=== PATIENT | male | born 1995 | race Caucasian/White ===

== ENCOUNTER 2023-06-14 13:14 | Inpatient (IN) | payer OTHER ==
[~2023-06-14] VITALS: Ht 167.6 cm; Wt 61.3 kg
[~2023-06-14 13:14] MED LIST: DEPA500T2 PO; VYVA50CA4 PO
[2023-06-14 15:29] LABS: BASO % 0.1 % (0.0-1.0); HEMOGLOBIN 15.1 g/dl (13.5-17.5); LYMPH # 0.3 10^3/uL (1.5-5.0); LYMPH % 3.9 % (24.0-44.0); MEAN CORPUSCULAR HEMOGLOBIN 33.9 pg (27.0-33.0); MEAN CORPUSCULAR VOLUME 94.4 fl (80.0-96.0); MONO # 0.6 10^3/uL (0.0-0.8); MONO % 8.6 % (2.0-8.0); NEUTROPHILS # 6.2 10^3/uL (1.5-8.5); NEUTROPHILS % 86.8 % (36.0-66.0); PLATELET COUNT, AUTOMATED 243 10^3/uL (150-450); RED BLOOD COUNT 4.45 10^6/uL (4.30-6.10); WHITE BLOOD COUNT 7.2 10^3/uL (4.0-10.0)
[2023-06-14 16:04] LABS: ALBUMIN 4.6 G/DL (3.2-5.2); ALKALINE PHOSPHATASE 128 U/L (46-116); ALT/SGPT 375 U/L (7.0-40); AST/SGOT 471 U/L (<34); BILIRUBIN,TOTAL 5.2 MG/DL (0.3-1.2); BLOOD UREA NITROGEN 8 MG/DL (9-23); CALCIUM LEVEL 9.2 MG/DL (8.5-10.1); CARBON DIOXIDE LEVEL 11 MMOL/L (20-31); CHLORIDE LEVEL 92 MMOL/L (98-107); CREATININE FOR GFR 0.53 MG/DL (0.70-1.30); GLOMERULAR FILTRATION RATE > 60.0 (>60); GLUCOSE, FASTING 152 MG/DL (60-100); POTASSIUM SERUM 3.7 MMOL/L (3.5-5.1); SODIUM LEVEL 131 MMOL/L (136-145); TOTAL PROTEIN 7.6 G/DL (5.7-8.2)
[2023-06-14 16:18] LABS: LIPASE 1164 U/L (12-53)
[2023-06-14 17:24] LABS: ABG BASE EXCESS -13.8 (-2.0-2.0); ABG HCO3 9.3 MMOL/L (22.0-26.0); ABG O2 SATURATION 98.4 % (95.0-99.0); ABG PARTIAL PRESSURE O2 116.2 mmHg (75.0-100.0); ABG STANDARD HCO3 14.2 MMOL/L. (22.0-26.0); ABG TOTAL CO2 9.9 MMOL/L (22.0-29.0); ABG pH (ARTERIAL) 7.319 UNITS (7.350-7.450)
[2023-06-14 17:25] LABS: ABG PARTIAL PRESSURE CO2 18.6 mmHg (35.0-45.0)
[2023-06-14] MEDS: LR 1,000 ML IV ONE (17:39)
[2023-06-14] MEDS: ONDANSETRON 4MG 2ML VIAL IV ONE ×2 (17:40→21:24)
[2023-06-14] MEDS: MORPHINE 4 MG/ML 1ML VIAL IV ONE (17:40)
[2023-06-14 17:44] LABS: MAGNESIUM LEVEL 1.8 MG/DL (1.8-2.4)
[2023-06-14] MEDS ORDERED: ISOVUE-370 76% 100ML VIAL As Ordered ONE (18:07)
[2023-06-14 18:14] LABS: HEMOGLOBIN A1c 4.2 % (4.0-6.0)
[2023-06-14 18:54] LABS: ETHYL ALCOHOL (ETHANOL) 0.195 % (0.000-0.010)
[2023-06-14 18:56] LABS: SALICYLATE LEVEL < 3.0 MG/DL (<30)
[2023-06-14 19:28] LABS: INR 1.21; PARTIAL THROMBOPLASTIN TIME 24.1 SECONDS (24.8-34.2); PROTHROMBIN TIME 14.9 SECONDS (12.5-14.5)
[2023-06-14] MEDS: PIPERACILLIN/TAZOBACTAM SOD 3.375 GM in D5W MINI-BAG PLUS 50 ML IV ONE (19:44)
[2023-06-14] MEDS: NS 1,000 ML IV ONE (19:45)
[2023-06-14] MEDS: LORazepam 2 MG/ML 1ML VIAL IV STA (20:06)
[2023-06-14 20:08] LABS: APPEARANCE, URINE HAZY (CLEAR); BACTERIA, URINE AUTO NEGATIVE (NEGATIVE); BILIRUBIN, URINE AUTO NEGATIVE (NEGATIVE); BLOOD, URINE BLOOD 1+ (NEGATIVE); COLOR, URINE AMBER (YELLOW); GLUCOSE, URINE (UA) AUTO 1+ mg/dL (NEGATIVE); KETONE, URINE AUTO 2+ mg/dL (NEGATIVE); LEUKOCYTE ESTERASE, URINE AUTO NEGATIVE (NEGATIVE); MUCUS, URINE SMALL (NEGATIVE); NITRITE, URINE AUTO NEGATIVE (NEGATIVE); PROTEIN, URINE AUTO 2+ mg/dL (NEGATIVE); RBC, URINE AUTO 0 /HPF (0-3); SQUAMOUS EPITHELIAL CELL UR AU 1 /HPF (0-6); WBC, URINE AUTO 6 /HPF (0-3)
[2023-06-14 20:20] LABS: HEPATITIS B CORE ANTIBODY IGM NEGATIVE (NEGATIVE)
[2023-06-14 20:21] LABS: HEPATITIS C VIRUS ABY INDEX 0.04 INDEX (<0.8)
[2023-06-14 20:23] LABS: SPECIFIC GRAVITY URINE AUTO >1.060 (1.002-1.035)
[2023-06-14] MEDS: THIAMINE 100 MG TAB PO SCH (21:00)
[2023-06-14] MEDS: MORPHINE 2 MG/ML 1ML VIAL IV ONE (21:25)
[2023-06-14] MEDS: MULTIVITAMIN -ADULT INJECTION 10 ML, THIAMINE INJection 100 MG, FOLIC ACID 1 MG in NS 1... IV ONE (23:38)
[2023-06-15] MEDS: LR 1,000 ML IV SCH (00:24)
[2023-06-15] MEDS: KETOROLAC 30 MG/ML 1ML VIAL IV PRN (00:54)
[2023-06-15] MEDS ORDERED: PREV15CA PO (01:46)
[2023-06-15] MEDS ORDERED: HOME MED LIST COMPLETE! XX SCH (01:50)
[2023-06-15 06:23] LABS: HEMATOCRIT 36.4 % (42.0-52.0); HEMOGLOBIN 13.2 g/dl (13.5-17.5); MEAN CORPUSCULAR HEMOGLOBIN 34.1 pg (27.0-33.0); MEAN CORPUSCULAR HGB CONC 36.3 g/dl (32.0-36.5); MEAN CORPUSCULAR VOLUME 94.1 fl (80.0-96.0); PLATELET COUNT, AUTOMATED 152 10^3/uL (150-450); RED BLOOD COUNT 3.87 10^6/uL (4.30-6.10); WHITE BLOOD COUNT 8.7 10^3/uL (4.0-10.0)
[2023-06-15 06:41] LABS: ALBUMIN 3.3 G/DL (3.2-5.2); ALKALINE PHOSPHATASE 89 U/L (46-116); ALT/SGPT 237 U/L (7.0-40); AST/SGOT 292 U/L (<34); BILIRUBIN,TOTAL 4.8 MG/DL (0.3-1.2); BLOOD UREA NITROGEN 6 MG/DL (9-23); CALCIUM LEVEL 8.4 MG/DL (8.5-10.1); CARBON DIOXIDE LEVEL 19 MMOL/L (20-31); CHLORIDE LEVEL 100 MMOL/L (98-107); CREATININE FOR GFR 0.42 MG/DL (0.70-1.30); GLOMERULAR FILTRATION RATE > 60.0 (>60); GLUCOSE, FASTING 133 MG/DL (60-100); MAGNESIUM LEVEL 1.3 MG/DL (1.8-2.4); POTASSIUM SERUM 3.5 MMOL/L (3.5-5.1); SODIUM LEVEL 135 MMOL/L (136-145); TOTAL PROTEIN 5.5 G/DL (5.7-8.2)
[2023-06-15] MEDS: MULTIVITAMINS/MINERALS THERAP 1 TAB PO SCH (08:42)
[2023-06-15] MEDS: FOLIC ACID 1MG TAB PO SCH (08:42)
[2023-06-15] MEDS: ENOXAPARIN 40MG/0.4ML SYRINGE (J1650 PER 10MG) SC SCH (08:43)
[2023-06-15] MEDS ORDERED: KETOROLAC 30 MG/ML 1ML VIAL IV PRN (11:10)
[2023-06-15] MEDS: ACETAMINOPHEN 500 MG TAB PO SCH (11:56)
[2023-06-15] MEDS: PANTOPRAZOLE 40MG VIAL IV SCH (12:18)
[2023-06-15] MEDS: MIRALAX *UNIT DOSE* 17GM PACKET PO SCH (12:18)
[2023-06-15] MEDS: BISACODYL 10MG SUPP PR SCH (13:39)
[2023-06-15 15:00] VITALS: BP 136/64
[2023-06-15] MEDS: KETOROLAC 30 MG/ML 1ML VIAL IV SCH (15:06)
[2023-06-15 15:10] VITALS: BP 130/67; TEMP 98.2; O2SAT 98
[2023-06-15] MEDS: MORPHINE 4 MG/ML 1ML VIAL IV PRN (18:21)
[2023-06-15 20:00] VITALS: BP 143/87; TEMP 98.6; O2SAT 97
[2023-06-15] MEDS: LORazepam 2 MG TAB PO PRN (20:26)
[2023-06-15 22:30] VITALS: BP 141/87; TEMP 97.9; O2SAT 95
[2023-06-16 00:29] VITALS: BP 137/95; TEMP 98.8; O2SAT 97
[2023-06-16 04:18] VITALS: BP 124/80; TEMP 98.6; O2SAT 95
[2023-06-16 06:31] LABS: EOS % 0.4 % (0.0-3.0); HEMATOCRIT 30.9 % (42.0-52.0); HEMOGLOBIN 11.4 g/dl (13.5-17.5); LYMPH # 0.7 10^3/uL (1.5-5.0); LYMPH % 13.4 % (24.0-44.0); MEAN CORPUSCULAR HEMOGLOBIN 33.8 pg (27.0-33.0); MEAN CORPUSCULAR HGB CONC 36.9 g/dl (32.0-36.5); MEAN CORPUSCULAR VOLUME 91.7 fl (80.0-96.0); MONO # 0.5 10^3/uL (0.0-0.8); MONO % 9.4 % (2.0-8.0); NEUTROPHILS # 4.1 10^3/uL (1.5-8.5); NEUTROPHILS % 76.2 % (36.0-66.0); PLATELET COUNT, AUTOMATED 118 10^3/uL (150-450); RED BLOOD COUNT 3.37 10^6/uL (4.30-6.10); WHITE BLOOD COUNT 5.3 10^3/uL (4.0-10.0)
[2023-06-16 06:57] LABS: ALBUMIN 2.6 G/DL (3.2-5.2); ALKALINE PHOSPHATASE 70 U/L (46-116); ALT/SGPT 169 U/L (7.0-40); AST/SGOT 206 U/L (<34); BILIRUBIN,TOTAL 5.1 MG/DL (0.3-1.2); BLOOD UREA NITROGEN < 5 MG/DL (9-23); CALCIUM LEVEL 8.3 MG/DL (8.5-10.1); CARBON DIOXIDE LEVEL 28 MMOL/L (20-31); CHLORIDE LEVEL 99 MMOL/L (98-107); GLOMERULAR FILTRATION RATE > 60.0 (>60); GLUCOSE, FASTING 91 MG/DL (60-100); POTASSIUM SERUM 2.8 MMOL/L (3.5-5.1); SODIUM LEVEL 132 MMOL/L (136-145); TOTAL PROTEIN 4.4 G/DL (5.7-8.2)
[2023-06-16 08:18] LABS: PHOSPHORUS LEVEL 0.5 MG/DL (2.5-4.9)
[2023-06-16] MEDS: KCL 10MEQ/100ML SWI (KRUN) 10 MEQ in IV 1 EA IV SCH (08:19)
[2023-06-16] MEDS: MAG SULF 1GM/100ML (MAG RUN) 1 GM in IV 1 EA IV SCH (08:19)
[2023-06-16] MEDS: POTASSIUM CHLORIDE 10MEQ SR TABLET PO SCH (08:25)
[2023-06-16 09:43] VITALS: BP 118/81
[2023-06-16] MEDS: oxyCODONE 5MG TAB PO PRN (12:00)
[2023-06-16] MEDS: MAGNESIUM CITRATE 300ML BTL PO ONE (14:00)
[2023-06-16] MEDS: SODIUM PHOSPHATE INJ 30 MMOL in D5W 500 ML IV ONE (15:33)
[2023-06-16 20:59] VITALS: BP 121/85
[2023-06-16 21:10] VITALS: BP 121/85; TEMP 98.8; O2SAT 96
[2023-06-17 01:07] VITALS: BP 133/102
[2023-06-17 02:14] VITALS: BP 134/88
[2023-06-17 05:21] VITALS: BP 136/84; TEMP 98.2; O2SAT 96
[2023-06-17 06:38] LABS: BASO % 0.2 % (0.0-1.0); EOS % 0.4 % (0.0-3.0); HEMATOCRIT 30.6 % (42.0-52.0); HEMOGLOBIN 11.2 g/dl (13.5-17.5); LYMPH # 0.6 10^3/uL (1.5-5.0); LYMPH % 12.4 % (24.0-44.0); MEAN CORPUSCULAR HEMOGLOBIN 33.1 pg (27.0-33.0); MEAN CORPUSCULAR VOLUME 90.5 fl (80.0-96.0); MONO # 0.3 10^3/uL (0.0-0.8); MONO % 5.6 % (2.0-8.0); NEUTROPHILS % 80.8 % (36.0-66.0); RED BLOOD COUNT 3.38 10^6/uL (4.30-6.10)
[2023-06-17 06:48] LABS: MEAN CORPUSCULAR HGB CONC 36.6 g/dl (32.0-36.5); PLATELET COUNT, AUTOMATED 127 10^3/uL (150-450)
[2023-06-17 07:05] LABS: ALBUMIN 2.5 G/DL (3.2-5.2); ALKALINE PHOSPHATASE 76 U/L (46-116); ALT/SGPT 216 U/L (7.0-40); AST/SGOT 326 U/L (<34); BILIRUBIN,DIRECT 6.3 MG/DL (<0.4); BILIRUBIN,TOTAL 7.9 MG/DL (0.3-1.2); BLOOD UREA NITROGEN < 5 MG/DL (9-23); CALCIUM LEVEL 7.6 MG/DL (8.5-10.1); CARBON DIOXIDE LEVEL 29 MMOL/L (20-31); CHLORIDE LEVEL 99 MMOL/L (98-107); CREATININE FOR GFR 0.29 MG/DL (0.70-1.30); GLOMERULAR FILTRATION RATE > 60.0 (>60); GLUCOSE, FASTING 79 MG/DL (60-100); MAGNESIUM LEVEL 1.7 MG/DL (1.8-2.4); POTASSIUM SERUM 3.1 MMOL/L (3.5-5.1); SODIUM LEVEL 135 MMOL/L (136-145); TOTAL PROTEIN 4.4 G/DL (5.7-8.2)
[2023-06-17] MEDS: MAG SULF 1GM/100ML (MAG RUN) 1 GM in IV 1 EA IV SCH (08:31)
[2023-06-17] MEDS: MAGNESIUM OXIDE 400MG TAB (MAG-OX) PO SCH (08:32)
[2023-06-17] MEDS: POTASSIUM PHOSPHATE INJ 30 MMOL in D5W 500 ML IV ONE (13:36)
[2023-06-17 14:00] VITALS: BP 115/85; TEMP 98.2; O2SAT 97
[2023-06-17 14:54] LABS: INR 1.66
[2023-06-17 20:01] VITALS: BP 115/84; TEMP 98.8
[2023-06-17 21:25] VITALS: BP 128/94
[2023-06-18] VITALS (9 sets, daily range): BP systolic 116–138; BP diastolic 56–99; TEMP 98–99.6; O2SAT 92–99
[2023-06-18 06:33] LABS: BASO % 0.5 % (0.0-1.0); EOS % 0.3 % (0.0-3.0); HEMATOCRIT 34.6 % (42.0-52.0); HEMOGLOBIN 12.6 g/dl (13.5-17.5); LYMPH # 0.6 10^3/uL (1.5-5.0); MEAN CORPUSCULAR HEMOGLOBIN 33.2 pg (27.0-33.0); MEAN CORPUSCULAR HGB CONC 36.4 g/dl (32.0-36.5); MEAN CORPUSCULAR VOLUME 91.3 fl (80.0-96.0); MONO # 0.3 10^3/uL (0.0-0.8); MONO % 4.2 % (2.0-8.0); NEUTROPHILS # 5.2 10^3/uL (1.5-8.5); NEUTROPHILS % 84.5 % (36.0-66.0); PLATELET COUNT, AUTOMATED 149 10^3/uL (150-450); RED BLOOD COUNT 3.79 10^6/uL (4.30-6.10); WHITE BLOOD COUNT 6.2 10^3/uL (4.0-10.0)
[2023-06-18 07:21] LABS: ALBUMIN 2.7 G/DL (3.2-5.2); ALKALINE PHOSPHATASE 121 U/L (46-116); ALT/SGPT 1566 U/L (7.0-40); AST/SGOT 3920 U/L (<34); BILIRUBIN,DIRECT 7.4 MG/DL (<0.4); BILIRUBIN,TOTAL 9.3 MG/DL (0.3-1.2); BLOOD UREA NITROGEN 5 MG/DL (9-23); CALCIUM LEVEL 8.1 MG/DL (8.5-10.1); CARBON DIOXIDE LEVEL 26 MMOL/L (20-31); CHLORIDE LEVEL 100 MMOL/L (98-107); CREATININE FOR GFR 0.34 MG/DL (0.70-1.30); GLOMERULAR FILTRATION RATE > 60.0 (>60); GLUCOSE, FASTING 67 MG/DL (60-100); POTASSIUM SERUM 3.3 MMOL/L (3.5-5.1); SODIUM LEVEL 136 MMOL/L (136-145); TOTAL PROTEIN 4.7 G/DL (5.7-8.2)
[2023-06-18 08:18] LABS: INR 1.8; PARTIAL THROMBOPLASTIN TIME 30.9 SECONDS (24.8-34.2); PROTHROMBIN TIME 20.3 SECONDS (12.5-14.5)
[2023-06-18] MEDS: ACETYLCYSTEINE IV ONE ×2 (08:38→16:08)
[2023-06-18] MEDS: D5W IV ONE ×2 (08:38→16:08)
[2023-06-18 09:05] LABS: HIV 1&2 SCREEN NEGATIVE (NEGATIVE)
[2023-06-18] MEDS: ACETYLCYSTEINE 3,100 MG in D5W 500 ML IV ONE (11:29)
[2023-06-18 13:08] LABS: INR 1.82; PROTHROMBIN TIME 20.4 SECONDS (12.5-14.5)
[2023-06-18 13:25] LABS: ALBUMIN 2.4 G/DL (3.2-5.2); BILIRUBIN,DIRECT 7.1 MG/DL (<0.4); BILIRUBIN,TOTAL 8.9 MG/DL (0.3-1.2); TOTAL PROTEIN 4.6 G/DL (5.7-8.2)
[2023-06-18] MEDS: POTASSIUM PHOSPHATE INJ 30 MMOL in D5W 500 ML IV ONE (14:45)
[2023-06-18] MEDS: HEPARIN SOD (PORCINE) 5000UNITS/ML 1ML VIAL/SYRINGE SQ SCH (16:08)
[2023-06-18 18:06] LABS: INR 1.89; PROTHROMBIN TIME 21.1 SECONDS (12.5-14.5)
[2023-06-18 18:28] LABS: ALBUMIN 2.3 G/DL (3.2-5.2); BILIRUBIN,TOTAL 8.8 MG/DL (0.3-1.2); TOTAL PROTEIN 4.4 G/DL (5.7-8.2)
[2023-06-18] MEDS: prednisoLONE (PRELONE) 15MG/5ML SYRUP UDC PO SCH (18:53)
[2023-06-18] MEDS: MAG SULF 1GM/100ML (MAG RUN) 1 GM in IV 1 EA IV SCH (20:48)
[2023-06-18 22:10] LABS: ALBUMIN 2.3 G/DL (3.2-5.2); BLOOD UREA NITROGEN < 5 MG/DL (9-23); CALCIUM LEVEL 7.3 MG/DL (8.5-10.1); CARBON DIOXIDE LEVEL 28 MMOL/L (20-31); CHLORIDE LEVEL 96 MMOL/L (98-107); GLOMERULAR FILTRATION RATE > 60.0 (>60); GLUCOSE, FASTING 133 MG/DL (60-100); PHOSPHORUS LEVEL 3.7 MG/DL (2.5-4.9); POTASSIUM SERUM 2.9 MMOL/L (3.5-5.1); SODIUM LEVEL 130 MMOL/L (136-145)
[2023-06-18] MEDS: MAG SULF 1GM/100ML (MAG RUN) 1 GM in IV 1 EA IV ONE (22:14)
[2023-06-18] MEDS: KCL 10MEQ/100ML SWI (KRUN) 10 MEQ in IV 1 EA IV SCH (23:31)
[2023-06-19 03:09] VITALS: BP 132/92; TEMP 98.6; O2SAT 95
[2023-06-19 05:39] LABS: BASO % 0.2 % (0.0-1.0); HEMATOCRIT 29.6 % (42.0-52.0); HEMOGLOBIN 10.7 g/dl (13.5-17.5); LYMPH # 0.3 10^3/uL (1.5-5.0); LYMPH % 6.9 % (24.0-44.0); MEAN CORPUSCULAR HEMOGLOBIN 33.3 pg (27.0-33.0); MEAN CORPUSCULAR HGB CONC 36.1 g/dl (32.0-36.5); MEAN CORPUSCULAR VOLUME 92.2 fl (80.0-96.0); MONO # 0.7 10^3/uL (0.0-0.8); MONO % 14.5 % (2.0-8.0); NEUTROPHILS # 3.7 10^3/uL (1.5-8.5); NEUTROPHILS % 77.8 % (36.0-66.0); PLATELET COUNT, AUTOMATED 178 10^3/uL (150-450); RED BLOOD COUNT 3.21 10^6/uL (4.30-6.10); WHITE BLOOD COUNT 4.8 10^3/uL (4.0-10.0)
[2023-06-19 06:36] LABS: ALBUMIN 2.2 G/DL (3.2-5.2); ALKALINE PHOSPHATASE 102 U/L (46-116); ALT/SGPT 1576 U/L (7.0-40); AST/SGOT 2541 U/L (<34); BILIRUBIN,DIRECT 5.9 MG/DL (<0.4); BILIRUBIN,TOTAL 7.3 MG/DL (0.3-1.2); BLOOD UREA NITROGEN < 5 MG/DL (9-23); CALCIUM LEVEL 7.5 MG/DL (8.5-10.1); CARBON DIOXIDE LEVEL 29 MMOL/L (20-31); CHLORIDE LEVEL 99 MMOL/L (98-107); GLOMERULAR FILTRATION RATE > 60.0 (>60); GLUCOSE, FASTING 140 MG/DL (60-100); POTASSIUM SERUM 3.5 MMOL/L (3.5-5.1); SODIUM LEVEL 133 MMOL/L (136-145); TOTAL PROTEIN 4.2 G/DL (5.7-8.2)
[2023-06-19 07:43] VITALS: BP 138/96; TEMP 98.3; O2SAT 96
[2023-06-19 09:21] LABS: INR 1.52; PARTIAL THROMBOPLASTIN TIME 32.5 SECONDS (24.8-34.2); PROTHROMBIN TIME 17.8 SECONDS (12.5-14.5)
[2023-06-19] MEDS: POTASSIUM CHLORIDE 10MEQ SR TABLET PO SCH (09:55)
[2023-06-19 11:37] VITALS: BP 144/102; TEMP 98.4; O2SAT 96
[2023-06-19] MEDS: CALCIUM GLUCONATE 1,000 MG in D5W MINI-BAG PLUS 100 ML IV ONE (12:12)
[2023-06-19] MEDS: ACETYLCYSTEINE 6,600 MG in D5W 1,000 ML IV ONE (12:13)
[2023-06-19 12:23] LABS: HEMATOCRIT 33.5 % (42.0-52.0); HEMOGLOBIN 11.9 g/dl (13.5-17.5); MEAN CORPUSCULAR HEMOGLOBIN 32.6 pg (27.0-33.0); MEAN CORPUSCULAR HGB CONC 35.5 g/dl (32.0-36.5); MEAN CORPUSCULAR VOLUME 91.8 fl (80.0-96.0); PLATELET COUNT, AUTOMATED 166 10^3/uL (150-450); RED BLOOD COUNT 3.65 10^6/uL (4.30-6.10); WHITE BLOOD COUNT 6.3 10^3/uL (4.0-10.0)
[2023-06-19 12:35] LABS: INR 1.42; PROTHROMBIN TIME 16.9 SECONDS (12.5-14.5)
[2023-06-19 13:06] LABS: ALBUMIN 2.5 G/DL (3.2-5.2); BILIRUBIN,DIRECT 6.8 MG/DL (<0.4); BILIRUBIN,TOTAL 8.5 MG/DL (0.3-1.2); TOTAL PROTEIN 4.7 G/DL (5.7-8.2)
[2023-06-19 15:53] VITALS: BP 139/100; TEMP 98.8; O2SAT 94
[2023-06-19 18:38] LABS: INR 1.4; PROTHROMBIN TIME 16.7 SECONDS (12.5-14.5)
[2023-06-19 19:09] LABS: ALBUMIN 2.6 G/DL (3.2-5.2); BILIRUBIN,DIRECT 6.6 MG/DL (<0.4); BILIRUBIN,TOTAL 8.4 MG/DL (0.3-1.2); TOTAL PROTEIN 4.8 G/DL (5.7-8.2)
[2023-06-19 19:28] VITALS: BP 140/92; TEMP 97.7; O2SAT 95
[2023-06-19 23:01] VITALS: BP 140/95; TEMP 97.6; O2SAT 95
[2023-06-20] VITALS (8 sets, daily range): BP systolic 131–156; BP diastolic 90–104; TEMP 97.6–98.4; O2SAT 6–98
[2023-06-20 01:45] LABS: INR 1.4; PROTHROMBIN TIME 16.7 SECONDS (12.5-14.5)
[2023-06-20 03:04] LABS: ALBUMIN 2.5 G/DL (3.2-5.2); BILIRUBIN,DIRECT 5.8 MG/DL (<0.4); BILIRUBIN,TOTAL 7.4 MG/DL (0.3-1.2); TOTAL PROTEIN 4.9 G/DL (5.7-8.2)
[2023-06-20 06:10] LABS: BASO % 0.2 % (0.0-1.0); EOS # 0.1 10^3/uL (0.0-0.5); EOS % 0.8 % (0.0-3.0); HEMATOCRIT 32.4 % (42.0-52.0); HEMOGLOBIN 11.5 g/dl (13.5-17.5); LYMPH % 14.5 % (24.0-44.0); MEAN CORPUSCULAR HGB CONC 35.5 g/dl (32.0-36.5); MEAN CORPUSCULAR VOLUME 93.1 fl (80.0-96.0); MONO # 1.8 10^3/uL (0.0-0.8); MONO % 27.3 % (2.0-8.0); NEUTROPHILS # 3.7 10^3/uL (1.5-8.5); NEUTROPHILS % 56.3 % (36.0-66.0); RED BLOOD COUNT 3.48 10^6/uL (4.30-6.10); WHITE BLOOD COUNT 6.6 10^3/uL (4.0-10.0)
[2023-06-20 06:12] LABS: PLATELET COUNT, AUTOMATED 338 10^3/uL (150-450)
[2023-06-20 06:39] LABS: ALBUMIN 2.5 G/DL (3.2-5.2); ALKALINE PHOSPHATASE 144 U/L (46-116); ALT/SGPT 1186 U/L (7.0-40); AST/SGOT 621 U/L (<34); BILIRUBIN,TOTAL 7.8 MG/DL (0.3-1.2); BLOOD UREA NITROGEN < 5 MG/DL (9-23); CALCIUM LEVEL 8.4 MG/DL (8.5-10.1); CARBON DIOXIDE LEVEL 27 MMOL/L (20-31); CHLORIDE LEVEL 101 MMOL/L (98-107); CREATININE FOR GFR 0.36 MG/DL (0.70-1.30); GLOMERULAR FILTRATION RATE > 60.0 (>60); GLUCOSE, FASTING 104 MG/DL (60-100); MAGNESIUM LEVEL 1.9 MG/DL (1.8-2.4); SODIUM LEVEL 136 MMOL/L (136-145); TOTAL PROTEIN 4.8 G/DL (5.7-8.2)
[2023-06-20] MEDS: MAG SULF 1GM/100ML (MAG RUN) 1 GM in IV 1 EA IV ONE (08:58)
[2023-06-20] MEDS: SODIUM PHOSPHATE INJ 30 MMOL in D5W 500 ML IV ONE (11:09)
[2023-06-20] MEDS: KETOROLAC 30 MG/ML 1ML VIAL IV PRN (12:43)
[2023-06-20] MEDS: MORPHINE 4 MG/ML 1ML VIAL IV PRN (14:24)
[2023-06-20 18:26] LABS: INR 1.26; PROTHROMBIN TIME 15.4 SECONDS (12.5-14.5)
[2023-06-20 18:51] LABS: BILIRUBIN,DIRECT 6.4 MG/DL (<0.4); BILIRUBIN,TOTAL 8.2 MG/DL (0.3-1.2); TOTAL PROTEIN 5.3 G/DL (5.7-8.2)
[2023-06-21] MEDS ORDERED: zolPIDEM TARTRATE 5 MG TAB PO PRN (01:50)
[2023-06-21 03:03] VITALS: BP 144/91; TEMP 98.1; O2SAT 98
[2023-06-21 05:33] LABS: BASO % 0.2 % (0.0-1.0); EOS % 0.6 % (0.0-3.0); HEMATOCRIT 32.1 % (42.0-52.0); HEMOGLOBIN 11.4 g/dl (13.5-17.5); LYMPH # 1.1 10^3/uL (1.5-5.0); LYMPH % 16.4 % (24.0-44.0); MEAN CORPUSCULAR HEMOGLOBIN 33.5 pg (27.0-33.0); MEAN CORPUSCULAR HGB CONC 35.5 g/dl (32.0-36.5); MEAN CORPUSCULAR VOLUME 94.4 fl (80.0-96.0); MONO # 2.4 10^3/uL (0.0-0.8); NEUTROPHILS # 2.9 10^3/uL (1.5-8.5); NEUTROPHILS % 44.7 % (36.0-66.0); PLATELET COUNT, AUTOMATED 411 10^3/uL (150-450); WHITE BLOOD COUNT 6.5 10^3/uL (4.0-10.0)
[2023-06-21 05:56] LABS: ALBUMIN 2.8 G/DL (3.2-5.2); ALKALINE PHOSPHATASE 184 U/L (46-116); ALT/SGPT 783 U/L (7.0-40); AST/SGOT 242 U/L (<34); BILIRUBIN,DIRECT 4.9 MG/DL (<0.4); BILIRUBIN,TOTAL 6.5 MG/DL (0.3-1.2); BLOOD UREA NITROGEN < 5 MG/DL (9-23); CALCIUM LEVEL 8.1 MG/DL (8.5-10.1); CARBON DIOXIDE LEVEL 27 MMOL/L (20-31); CHLORIDE LEVEL 103 MMOL/L (98-107); CREATININE FOR GFR 0.37 MG/DL (0.70-1.30); GLOMERULAR FILTRATION RATE > 60.0 (>60); GLUCOSE, FASTING 104 MG/DL (60-100); PHOSPHORUS LEVEL 2.5 MG/DL (2.5-4.9); POTASSIUM SERUM 3.4 MMOL/L (3.5-5.1); SODIUM LEVEL 138 MMOL/L (136-145); TOTAL PROTEIN 4.9 G/DL (5.7-8.2)
[2023-06-21] MEDS ORDERED: MAGN400T2 PO (08:36)
[2023-06-21] MEDS ORDERED: POTA-136 PO (08:36)
[2023-06-21] MEDS ORDERED: FOLI1TAB11 PO (08:36)
[2023-06-21] MEDS ORDERED: MIRA3350 PO (08:36)
[2023-06-21] MEDS ORDERED: PRED15SO24 PO (08:36)
[2023-06-21] MEDS ORDERED: OMEP40CA4 PO (08:40)
[2023-06-21] MEDS: POTASSIUM CHLORIDE 10MEQ SR TABLET PO SCH (08:54)
[2023-06-22] MEDS ORDERED: POTASSIUM CHLORIDE 10MEQ SR TABLET PO SCH (09:00)
== END 2023-06-21 09:09 | disposition left against medical advice (07) | DRG 280 ==
LOC: M ED 13:14 → M ED INP 23:34 → ENRESERV 06-15 14:09 → M MSPAV 06-15 14:55 → M PCU 06-18 09:30
PROVIDERS: ADMIT Internal Medicine; ATTEND Student in an Organized Health Care Education/Training Program
DX: K70.40 Alcoholic hepatic failure without coma (principal); K85.20 Alcohol induced acute pancreatitis without necrosis or infection; E87.20 Acidosis, unspecified; E83.42 Hypomagnesemia; E83.39 Other disorders of phosphorus metabolism; E83.51 Hypocalcemia; R74.01 Elevation of levels of liver transaminase levels; F10.239 Alcohol dependence with withdrawal, unspecified; K59.00 Constipation, unspecified; E80.6 Other disorders of bilirubin metabolism; E87.6 Hypokalemia; Z79.899 Other long term (current) drug therapy; Z91.018 Allergy to other foods; Z11.52 Encounter for screening for COVID-19; Z71.41 Alcohol abuse counseling and surveillance of alcoholic

== ENCOUNTER → 2023-08-23 | Outpatient (REF) | payer OTHER ==
[~2023-08-23] MED LIST changes: +FOLI1TAB11 PO; +MAGN400T2 PO; +MIRA3350 PO; +OMEP40CA4 PO; +POTA-136 PO; +PRED15SO24 PO; +PREV15CA PO
[2023-08-23 16:43] LABS: BASO % 0.5 % (0.0-1.0); EOS # 0.2 10^3/uL (0.0-0.5); EOS % 2.8 % (0.0-3.0); HEMATOCRIT 45.3 % (42.0-52.0); HEMOGLOBIN 15.3 g/dl (13.5-17.5); LYMPH % 30.5 % (24.0-44.0); MEAN CORPUSCULAR HEMOGLOBIN 32.1 pg (27.0-33.0); MEAN CORPUSCULAR HGB CONC 33.8 g/dl (32.0-36.5); MEAN CORPUSCULAR VOLUME 95.2 fl (80.0-96.0); MONO # 0.7 10^3/uL (0.0-0.8); MONO % 10.9 % (2.0-8.0); NEUTROPHILS # 3.5 10^3/uL (1.5-8.5); NEUTROPHILS % 55.1 % (36.0-66.0); PLATELET COUNT, AUTOMATED 423 10^3/uL (150-450); RED BLOOD COUNT 4.76 10^6/uL (4.30-6.10); WHITE BLOOD COUNT 6.4 10^3/uL (4.0-10.0)
[2023-08-23 17:10] LABS: ALKALINE PHOSPHATASE 70 U/L (46-116); ALT/SGPT 56 U/L (7.0-40); AST/SGOT 33 U/L (<34); BILIRUBIN,TOTAL 0.4 MG/DL (0.3-1.2); BLOOD UREA NITROGEN 11 MG/DL (9-23); CALCIUM LEVEL 9.5 MG/DL (8.5-10.1); CARBON DIOXIDE LEVEL 30 MMOL/L (20-31); CHLORIDE LEVEL 105 MMOL/L (98-107); CREATININE FOR GFR 0.71 MG/DL (0.70-1.30); GLOMERULAR FILTRATION RATE > 60.0 (>60); GLUCOSE, FASTING 94 MG/DL (60-100); INR 0.93; MAGNESIUM LEVEL 1.8 MG/DL (1.8-2.4); PHOSPHORUS LEVEL 5.4 MG/DL (2.5-4.9); POTASSIUM SERUM 4.6 MMOL/L (3.5-5.1); PROTHROMBIN TIME 12.2 SECONDS (12.5-14.5); SODIUM LEVEL 142 MMOL/L (136-145); TOTAL PROTEIN 6.8 G/DL (5.7-8.2)
== END ==
LOC: M SFHCCLAY 13:01
PROVIDERS: ATTEND Physician Assistant Medical
DX: K72.00 Acute and subacute hepatic failure without coma (principal); K85.20 Alcohol induced acute pancreatitis without necrosis or infection; F10.90 Alcohol use, unspecified, uncomplicated